=== PATIENT | male | born 1975 | race Caucasian/White ===

== ENCOUNTER 2016-12-27 12:35 | Emergency (ER) | payer SELFPAY ==
[2016-12-27] MEDS ORDERED: 0.9 % SODIUM CHLORIDE 1,000 ML BAG IV ONE (13:19)
--- NOTE | 2016-12-27 13:23 | Emergency Department Record ---
History of Present Illness - General Chief Complaint: Abdominal Pain Stated Complaint: JAW PAIN/ABD PAIN/? ELEVATE B/P Time Seen by Provider: 12/27/16 13:19 Source: Patient Mode of Arrival: Ambulatory Limitations: No limitations - History of Present Illness Initial Comments: 41 yo male presents with several concerns. He reports fast, heavy heart racing this morning that started around 9am while at rest. He felt like his heart was pounding and going fast. He has had some epigastric upper abdominal pain for the last 4-5 days as well with some pain in the left flank. He has attributed this to driving to [place] in the car relates it to position changes. He is having left jaw pain as well. He has a fractured tooth. No hot or cold sensations to the tooth. During the pounding heart rate he felt light headed as if he could pass out. No current PCP He is a smoker. MD Complaint: Abdominal pain, Other (Jaw/Tooth Pain, Palpitations, back pain) Onset/Timin -: Hour(s) Location: Epigastric, Other Radiation: Epigastric, L flank Migration to: No migration Severity: Moderate Quality: Aching Consistency: Constant Improves With: Nothing Worsens With: Nothing - Related Data Previous Rx's Medication Instructions Recorded Amoxicillin 500Mg Capsule [Amoxil] 500 mg PO TID #30 tab 12/27/16 Pantoprazole Sodium [Protonix] 20 mg PO DAILY #30 tablet. 12/27/16 Allergies Allergy/AdvReac Type Severity Reaction Status Date / Time erythromycin base Allergy Unknown PT UNSURE Unverified 12/19/15 16:00 OF REACTION Travel Screening - Travel/Exposure Within Last 30 Days Have you traveled within the last 30 days?: Yes Location Detail:: [place] - Travel/Exposure Within Last Year Have you traveled outside the [place] in the last year?: No - Additonal Travel Details Have you been exposed to anyone with a communicable illness?: No - Travel Symptoms Symptom Screening: None Review of Systems Constitutional: Denies: Chills, Fever, Malaise, Night sweats, Weakness Eyes: Denies: Eye discharge ENT: Reports: Dental pain, Other (Left jaw pain). Denies: Congestion, Throat pain Respiratory: Reports: Dyspnea (mild during the heart racing.). Denies: Hemoptysis, Stridor, Wheezes Cardiovascular: Reports: Chest pain (lower sternal epigastric discomfort), Palpitations. Denies: Dyspnea on exertion, Syncope (He felt light headed light he could pass out) Endocrine: Denies: Fatigue Gastrointestinal: Denies: Abdominal pain, Diarrhea, Nausea, Vomiting Genitourinary: Denies: Dysuria, Frequency, Hematuria Musculoskeletal: Reports: Back pain. Denies: Arthralgia, Joint swelling, Myalgia, Neck pain Skin: Denies: Bruising, Change in color, Rash Neurological: Denies: Headache, Numbness, Vertigo, Weakness Psychiatric: Denies: Anxiety Hematological/Lymphatic: Denies: Blood Clots, Easy bleeding, Easy bruising, Swollen glands Past Medical History - SOCIAL HISTORY Smoking Status: Current every day smoker Alcohol Use: None Drug Use: None - RESPIRATORY Hx Respiratory Disorders: No - CARDIOVASCULAR Hx Cardio Disorders: No - NEURO Hx Neuro Disorders: No - GI Hx GI Disorders: No - Hx Genitourinary Disorders: No - ENDOCRINE Hx Endocrine Disorders: No Hx Diabetes: No Hx Thyroid Disease: No - MUSCULOSKELETAL Hx Musculoskeletal Disorders: No - PSYCH Hx Psych Problems: No - HEMATOLOGY/ONCOLOGY Hx Hematology/Oncology Disorders: No Family Medical History Any Significant Family History?: No Physical Exam - General General Appearance: Alert, Oriented x3, Cooperative, No acute distress Limitations: No limitations - Head Head exam: Normal inspection - Eye Eye exam: Normal appearance, PERRL. negative: Periorbital swelling - ENT ENT exam: Normal exam, Mucous membranes moist Ear exam: Normal external inspection Nasal Exam: Normal inspection Mouth exam: Normal external inspection Teeth exam: Normal inspection Throat exam: Normal inspection - Neck Neck exam: Normal inspection, Full ROM. negative: Tenderness - Respiratory Respiratory exam: Normal lung sounds bilaterally. negative: Respiratory distress - Cardiovascular Cardiovascular Exam: Regular rate, Normal rhythm, Normal heart sounds. negative : Diastolic murmur, Systolic murmur - GI/Abdominal GI/Abdominal exam: Soft. negative: Distended, Guarding, Rebound - Rectal Rectal exam: Deferred - exam: Deferred - Extremities Extremities exam: Normal inspection, Full ROM, Normal capillary refill. negative: Pedal edema, Tenderness - Back Back exam: Reports: Normal inspection, Full ROM. Denies: Muscle spasm, Paraspinal tenderness, Rash noted, Tenderness - Neurological Neurological exam: Alert, Normal gait, Oriented X3, Reflexes normal - Psychiatric Psychiatric exam: Normal affect, Normal mood. negative: Agitated, Anxious - Skin Skin exam: Dry, Intact, Normal color, Warm Course Vital Signs 12/27/16 12:44 Temperature 98.2 F Pulse Rate 78 Respiratory 20 Rate Blood Pressure 152/94 Pulse Ox 98 - Reevaluation(s) Reevaluation #1: the EKG changes were discussed with the patient. He has never had an EKG in the past 12/27/16 13:33 Reevaluation #2: I SW Dr Small of [facility] [place]. He reviewed the EKG. He agrees the findings are non specific. He recommends referral to see him in the [facility]. A referral was placed. 12/27/16 14:43 Reevaluation #3: Repeat Troponin is negative Atypical symptoms with palpitations DC with Protonix and Amoxicillin for the left sided tooth pain 12/27/16 16:49 Procedures - EKG Initial EKG Detail: NSR rate 68, INT NL, [place] Left, ST inv T in III, flat AVF, poor R Medical Decision Making - Lab Data Result diagrams: 12/27/16 13:30 12/27/16 13:30 Disposition Disposition: Discharge Clinical Impression: Palpitations, Tooth caries Disposition: Home, Self-Care Condition: (1) Good Instructions: Heart Palpitations (ED), Abdominal Pain (ED) Additional Instructions: Return immediately if any return of he rapid heart rate or any new symptoms or concerns Take the Protonix daily You are being referred to the specialty clinic for your palpitations Prescriptions: Amoxicillin 500Mg Capsule [Amoxil] 500 mg PO TID #30 tab Pantoprazole Sodium [Protonix] 20 mg PO DAILY #30 tablet. Referrals: [facility] [Provider Group] RUPALI SMALL M.D. [MEDICAL DOCTOR] - ERICK GERMAN M.D. [MEDICAL DOCTOR] - Forms: Patient Portal Access Time of Disposition: 15:02
[2016-12-27] MEDS ORDERED: ASPIRIN 81 MG CHEWABLE TABLET PO ONE (13:39)
[2016-12-27 13:50] LABS: BASO % 1.1 % (0-6); EOS % 1.5 % (0-6); HEMATOCRIT 45.9 % (42.0-52.0); HEMOGLOBIN 16.6 gm/dl (14.0-18.0); LYMPH % 28.2 % (16-45); MEAN CORPUSCULAR HEMOGLOBIN 30.7 pg (27-33); MEAN CORPUSCULAR HGB CONC 36.2 g/dl (32-36); MEAN PLATELET VOLUME 9.6 fl (7.4-10.4); MONO % 9.2 % (0-9); PLATELET COUNT 303 K/uL (130-400); RED CELL DISTRIBUTION WIDTH 12.6 % (11.5-14.5); WHITE BLOOD COUNT W/O DIFF 7.1 K/uL (4.2-12.2)
[2016-12-27 13:58] LABS: ALBUMIN 4.8 gm/dL (3.5-5.0); ALKALINE PHOSPHATASE 80 U/L (38-126); ALT/SGPT 41 U/L (21-72); ANION GAP 8.8 (7-16); AST/SGOT 27 U/L (17-59); BILIRUBIN,TOTAL 0.42 mg/dL (0.2-1.3); BLOOD UREA NITROGEN 13 mg/dL (9-20); CARBON DIOXIDE 25.2 mmol/L (22-30); CREATINE PHOSPHOKINASE 64 U/L (55-170); CREATININE 0.7 mg/dL (0.66-1.25); EST GLOMERULAR FILTRATION RATE > 60 ml/min; GLUCOSE,RANDOM 93 mg/dL (70-110); LIPASE 88 U/L (23-300); TOTAL PROTEIN 8.6 gm/dL (6.3-8.2)
[2016-12-27 14:10] LABS: CKMB 0.8 ug/L (0-6)
[2016-12-27 14:17] LABS: TROPONIN I < 0.012 ng/mL (0.00-0.034)
[2016-12-27 14:28] LABS: THYROID STIMULATING HORMONE 1.17 uIU/ml (0.465-4.68)
[2016-12-27 16:37] LABS: CKMB 0.7 ug/L (0-6)
[2016-12-27 16:39] LABS: TROPONIN I < 0.012 ng/mL (0.00-0.034)
--- NOTE | 2016-12-31 14:31 | RADIOLOGY REPORT ---
EXAM: CHEST, TWO VIEWS HISTORY: PAIN. TECHNIQUE: Frontal and lateral views of the chest were obtained. Comparison: 01/08/15 chest. FINDINGS: The heart size is normal. The lungs are clear. No pneumothorax. IMPRESSION: NEGATIVE CHEST EXAMINATION. JOB NUMBER: [id number] MTDD
== END 2016-12-27 17:11 | disposition home or self-care (01) ==
LOC: ER 12:35
DX: R00.2 Palpitations (principal); R10.13 Epigastric pain; K02.9 Dental caries, unspecified; R42 Dizziness and giddiness; F17.210 Nicotine dependence, cigarettes, uncomplicated
CPT/HCPCS: 71020; 80048; 80076; 82550; 82553; 83690; 84443; 84484; 85025; 85379; 93005; 93010; 99284; J7030

== ENCOUNTER 2019-08-02 13:21 | Emergency (ER) | payer BC ==
--- NOTE | 2019-08-02 13:26 | Emergency Department Record ---
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 He is a former 20 pack year smoker who quit 2 years ago. For the past 3 days or more he states it hurts to breathe deep and hurts continuously over his chest and into his jaw. He at times gets lightheaded and tingly in his arms. He has had pleurisy in the past and pneumonia. He denies DM, htn chol.and has no PCP. - Related Data Home Medications Medication Instructions Recorded Confirmed Last Taken Omeprazole [Prilosec] 20 mg PO DAILY 08/02/19 08/02/19 08/02/19 Allergies Allergy/AdvReac Type Severity Reaction Status Date / Time erythromycin base Allergy Unknown PT UNSURE Verified 08/02/19 13:24 OF REACTION Review of Systems Reviewed: No additional complaints except as noted below Constitutional: Reports: As per HPI. Denies: Chills, Fever, Malaise, Night sweats, Weakness, Weight change Eyes: Reports: As per HPI. Denies: Eye discharge, Eye pain, Photophobia, Vision change ENT: Reports: As per HPI. Denies: Congestion, Dental pain, Ear pain, Epistaxis, Hearing loss, Throat pain Respiratory: Reports: As per HPI. Denies: Cough, Dyspnea, Hemoptysis, Stridor, Wheezes Cardiovascular: Reports: As per HPI. Denies: Arrhythmia, Chest pain, Dyspnea on exertion, Edema, Murmurs, Orthopnea, Palpitations, Paroxysmal nocturnal dyspnea, Rheumatic Fever, Syncope Endocrine: Reports: As per HPI. Denies: Fatigue, Heat or cold intolerance, Polydipsia, Polyuria Gastrointestinal: Reports: As per HPI. Denies: Abdominal pain, Constipation, Diarrhea, Hematemesis, Hematochezia, Melena, Nausea, Vomiting Genitourinary: Reports: As per HPI. Denies: Dysuria, Frequency, Hematuria, Incontinence, Retention, Testicular pain, Testicular mass, Urgency Musculoskeletal: Reports: As per HPI. Denies: Arthralgia, Back pain, Gout, Joint swelling, Myalgia, Neck pain Skin: Reports: As per HPI. Denies: Bruising, Change in color, Change in hair/nails, Lesions, Pruritus, Rash Neurological: Reports: As per HPI. Denies: Abnormal gait, Confusion, Headache, Numbness, Paresthesias, Seizure, Tingling, Tremors, Vertigo, Weakness Psychiatric: Reports: As per HPI. Denies: Anxiety, Auditory hallucinations, Depression, Homicidal thoughts, Suicidal thoughts, Visual hallucinations Hematological/Lymphatic: Reports: As per HPI. Denies: Anemia, Blood Clots, Easy bleeding, Easy bruising, Swollen glands Past Medical History - SOCIAL HISTORY Smoking Status: Current every day smoker Drug Use: None - RESPIRATORY Hx Respiratory Disorders: No - CARDIOVASCULAR Hx Cardio Disorders: No - NEURO Hx Neuro Disorders: No - GI Hx GI Disorders: No - Hx Genitourinary Disorders: No - ENDOCRINE Hx Endocrine Disorders: No Hx Diabetes: No Hx Thyroid Disease: No - MUSCULOSKELETAL Hx Musculoskeletal Disorders: No - PSYCH Hx Psych Problems: No - HEMATOLOGY/ONCOLOGY Hx Hematology/Oncology Disorders: No Physical Exam - General General Appearance: Alert, Oriented x3, Cooperative, No acute distress - Head Head exam: Normal inspection - Eye Eye exam: Normal appearance, PERRL, EOMI. negative: Conjunctival injection, Nystagmus Pupils: Normal accommodation - ENT ENT exam: Normal exam, Mucous membranes moist, Normal external ear exam, Normal orophraynx, TM's normal bilaterally Ear exam: Normal external inspection. negative: External canal tenderness Nasal Exam: Normal inspection. negative: Discharge, Sinus tenderness Mouth exam: Normal external inspection, Tongue normal Teeth exam: Normal inspection. negative: Dental caries Throat exam: Normal inspection. negative: Tonsillar erythema, Tonsillar exudate - Neck Neck exam: Normal inspection, Full ROM. negative: Lymphadenopathy, Meningismus, Tenderness - Respiratory Respiratory exam: Normal lung sounds bilaterally, Chest wall tenderness (left lateral lower ribs tender with no crepitance or sub Q emphysema). negative: Respiratory distress - Cardiovascular Cardiovascular Exam: Regular rate, Normal rhythm, Normal heart sounds - GI/Abdominal GI/Abdominal exam: Soft, Normal bowel sounds. negative: Tenderness - Rectal Rectal exam: Deferred - exam: Deferred - Extremities Extremities exam: Normal inspection, Full ROM, Normal capillary refill. negative: Calf tenderness, Pedal edema, Tenderness - Back Back exam: Reports: Normal inspection, Full ROM. Denies: CVA tenderness (R), CVA tenderness (L), Muscle spasm, Rash noted, Tenderness - Neurological Neurological exam: Alert, CN II-XII intact, Normal gait, Oriented X3, Reflexes normal. negative: Altered, Motor sensory deficit - Psychiatric Psychiatric exam: Normal affect, Normal mood - Skin Skin exam: Dry, Intact, Normal color, Warm Course - Reevaluation(s) Reevaluation #1: 08/02/19 15:39 Side of his neck no longer hurts, but he still urts beneath his sternum. Reevaluation #2: The patient is feeling better except for some mild indigestion. Results discussed. Repeat troponin to be done, and if not rising will DC home with out patient cardiac workup through PCP is the plan. Sheyla au agreement. 08/02/19 16:53 Reevaluation #3: Repeat troponin is normal. Patient is ready for DC. All questions answered. 08/02/19 17:33 Medical Decision Making - Management Options MDM Management: Additional Work-up Planned (e.g. ADM/Transfer/OP Study) (Out patient cardiac workup through PCP office.) - Data Complexity MDM Data: Labs Ordered and/or Reviewed, X-Ray Ordered and/or Reviewed (CXR Neg per Radiologist.), EKG Ordered and/or Reviewed - Lab Data Result diagrams: 08/02/19 14:05 08/02/19 14:05 - EKG Data -: EKG Interpreted by Me EKG: No Acute Changes (NSR at 69/min; LAD, poor R wave progression, ALL old compared to 5-28-17.) Disposition Disposition: Discharge Clinical Impression: Nonacute chest pain, Pleurisy Instructions: Pleurisy (ED) Additional Instructions: Call your PCP office in a.m. to arrange out patient cardiac work up through that office and to monitor your blood pressure which was elevated this visit. Ibuprofen 800 three times daily WITH FOOD for 5-7 days only for chest wall pain. Quality - Quality Measures Quality Measures: N/A - Blood Pressure Screening Does Patient Have Any of the Following: No Blood Pressure Classification: Hypertensive Reading Systolic Measurement: 162 Diastolic Measurement: 102 Screening for High Blood Pressure: < First Hypertensive BP, F/U Documented > [G8950] First Hypertensive Follow-up Interventions: Follow-up with rescreen GT 1 day and LT 4 weeks., Lifestyle modifications., Referral to alternative/primary care provider. Lifestyle Modification: Dietary Approaches to Stop Hypertension (DASH) Eating Plan, Dietary Sodium Restriction, Increased Physical Activity, Moderation in alcohol (ETOH) consumption
[2019-08-02] MEDS ORDERED: 0.9 % SODIUM CHLORIDE 1000ML 1,000 ML IV ONE (13:53)
[2019-08-02] MEDS ORDERED: KETOROLAC 30 MG/ML VIAL IVP ONE (13:58)
[2019-08-02 14:13] LABS: ABSOLUTE NEUTROPHIL COUNT 3.16; BASO % 1.2 % (0-6); EOS % 1.1 % (0-6); GRAN % 48.2 % (47-80); HEMATOCRIT 48.1 % (42.0-52.0); HEMOGLOBIN 16.5 gm/dl (14.0-18.0); LYMPH % 41.1 % (16-45); MEAN CELL VOLUME 85.3 fl (81-97); MEAN CORPUSCULAR HEMOGLOBIN 29.3 pg (27-33); MEAN CORPUSCULAR HGB CONC 34.3 g/dl (32-36); MEAN PLATELET VOLUME 9.2 fl (7.4-10.4); MONO % 8.4 % (0-9); PLATELET COUNT 279 K/uL (130-400); RED BLOOD COUNT 5.64 M/uL (4.40-5.70); RED CELL DISTRIBUTION WIDTH 12.9 % (11.5-14.5); WHITE BLOOD COUNT W/O DIFF 6.6 K/uL (4.2-12.2)
[2019-08-02 14:27] LABS: BLOOD UREA NITROGEN 19 mg/dL (6-20); CREATININE 0.8 mg/dL (0.7-1.2); EST GLOMERULAR FILTRATION RATE > 60 mL/min
[2019-08-02 14:28] LABS: TOTAL PROTEIN 8.3 g/dL (6.6-8.7)
[2019-08-02 14:29] LABS: PARTIAL THROMBOPLASTIN TIME 25.5 SECONDS (24.5-39.1); PROTHROMBIN TIME (PATIENT) 10.2 SECONDS (9.5-12.1)
[2019-08-02 14:30] LABS: GLUCOSE,RANDOM 103 mg/dL (74-109)
[2019-08-02 14:32] LABS: ALB/GLOB RATIO 1.4 (1.1-1.8); ALBUMIN 4.9 g/dL (4.0-5.0); ALKALINE PHOSPHATASE 84 U/L (40-129); ALT/SGPT 57 U/L (<41); AST/SGOT 28 U/L (10.0-50.0)
[2019-08-02 14:43] LABS: THYROID STIMULATING HORMONE 1.42 uIU/mL (0.270-4.20)
--- NOTE | 2019-08-02 16:46 | RADIOLOGY REPORT ---
EXAMINATION: Two View Chest Radiographs EXAM DATE: 08/02/2019 4:13 PM TECHNIQUE: Frontal and lateral views INDICATION: chest hurts on the side and sternum COMPARISON: Chest x-ray 12/27/2016 ENCOUNTER: Not applicable FINDINGS: The heart, mediastinum, and pulmonary vasculature are normal. No lung consolidation or pleural effu sions are present. Exam slightly degraded by overlying cardiac lead wires. IMPRESSION: No acute cardiopulmonary disease is present. Dictated by: Tricia Diehl MD on 08/02/2019 4:42 PM. .
[2019-08-02] MEDS ORDERED: MAGNESIUM HYDROXIDE/AL HYDROX 30 ML, LIDOCAINE VISC 2% 15ML 15 ML PO ONE ×2 (16:52)
== END 2019-08-02 18:26 | disposition home or self-care (01) ==
LOC: ER 13:21
DX: R09.1 Pleurisy (principal); R07.9 Chest pain, unspecified; R03.0 Elevated blood-pressure reading, without diagnosis of hypertension; R20.0 Anesthesia of skin; Z87.891 Personal history of nicotine dependence
CPT/HCPCS: 71046; 80053; 84443; 84484; 85025; 85379; 85610; 85730; 93005; 93010; 96374; 99284; J1885